=== PATIENT | female | born 1965 | race Caucasian/White ===

== ENCOUNTER 2021-11-01 12:33 | Outpatient (CLI) | payer BC ==
--- NOTE | 2021-11-01 14:02 | DEXA Report ---
PROCEDURE: Dexa Spine and/or Hip INDICATIONS: POST MENOPAUSAL TECHNIQUE: Dual energy x-ray absorptiometry (DXA) was performed on a TagArray System. Regions measur ed are the AP Spine, femoral neck, and if needed forearm. COMPARISON: None. FINDINGS: Lumbar Spine: Bone Mineral Density 1.310 g/cm/cm,T score 1.1, normal bone density Left Hip: Bone Mineral Density 0.927 g/cm/cm,T score -0.6, normal bone density Left Femoral Neck: Bone Mineral Density 0.918 g/cm/cm, T score -0.9, normal bone density (T score greater or equal to -1.0: NORMAL) (T score from -1.1 to -2.4: OSTEOPENIA) (T score less than or equal to -2.5 to: OSTEOPOROSIS) Impression: Normal bone mineral density. Of note, measurements are at the borderline limits between normal bone d ensity and osteopenia. Patients with diagnosis of osteoporosis or osteopenia should have regular bone mineral density assess ment. For those eligible for Medicare, routine testing is allowed once every 2 years. Testing frequ ency can be increased for patients who have rapidly progressing disease or for those who are receivin g medical therapy to restore bone mass. Reviewed by: Avni Gramajo MD on 11/01/2021 2:01 PM PDT Approved by: Avni Gramajo MD on 11/01/2021 2:01 PM PDT Station ID: [id number]
== END 2021-11-01 12:34 | disposition home or self-care (01) ==
LOC: DI 12:33
PROVIDERS: ATTEND Internal Medicine
DX: N95.8 Other specified menopausal and perimenopausal disorders (principal); E55.9 Vitamin D deficiency, unspecified